=== PATIENT | female | born 1970 | race Caucasian/White ===

== ENCOUNTER → 2017-02-17 | Outpatient (CLI) | payer BC ==
[~2017-02-17] MED LIST: FORTAMET; LANTUS100 U/ML; NOVOLOG FLEX100 U/ML IV; PRENATAL1 TA3 PO
== END ==
LOC: MC.RAD 07:00
DX: Z12.31 Encounter for screening mammogram for malignant neoplasm of breast (principal)

== ENCOUNTER → 2017-08-10 | Outpatient (CLI) | payer BC ==
[~2017-08-10] VITALS: Ht 167.6 cm; Wt 138.3 kg
[~2017-08-10] MED LIST changes: +GLUCOPHAGE1000 MG PO; -LANTUS100 U/ML; +LANTUS100 U/ML SQ; -NOVOLOG FLEX100 U/ML IV; +NOVOLOG FLEX100 U/ML SQ; +PRINZIDE 25 MG-1 TAB PO; +VICTOZA6 MG/ML SQ; +VIENVA-28 TABL1 EACH PO; +WELLBUTRIN XL300 M1 PO; +ZOLOFT 100MG100 MG PO
[2017-08-10 14:57] VITALS: BP 140/84; PULSE 100
== END ==
LOC: LIGHT 14:24
DX: E88.81 Metabolic syndrome and other insulin resistance (principal); E11.9 Type 2 diabetes mellitus without complications; E66.01 Morbid (severe) obesity due to excess calories; Z68.42 Body mass index [BMI] 45.0-49.9, adult; Z71.3 Dietary counseling and surveillance; E78.00 Pure hypercholesterolemia, unspecified
CPT/HCPCS: G0463

== ENCOUNTER → 2017-08-29 | Outpatient (CLI) | payer BC | LOC: LIGHT 15:50 | DX: Z01.89 Encounter for other specified special examinations (principal) ==

== ENCOUNTER → 2017-09-07 | Outpatient (CLI) | payer BC ==
[~2017-09-07] VITALS: Ht 167.6 cm; Wt 137.4 kg
[2017-09-07 16:07] VITALS: BP 130/80; PULSE 80
== END ==
LOC: LIGHT 13:44
DX: E88.81 Metabolic syndrome and other insulin resistance (principal); E11.9 Type 2 diabetes mellitus without complications; E66.01 Morbid (severe) obesity due to excess calories; Z68.42 Body mass index [BMI] 45.0-49.9, adult; Z71.3 Dietary counseling and surveillance; E78.00 Pure hypercholesterolemia, unspecified
CPT/HCPCS: G0463

== ENCOUNTER → 2017-09-20 | Outpatient (CLI) | payer BC | LOC: LIGHT 15:53 | DX: Z01.818 Encounter for other preprocedural examination (principal) ==

== ENCOUNTER → 2017-10-12 | Outpatient (CLI) | payer BC ==
[~2017-10-12] VITALS: Ht 167.6 cm; Wt 139.5 kg
[2017-10-12 14:53] VITALS: BP 160/72; PULSE 88
== END ==
LOC: LIGHT 13:45
DX: E88.81 Metabolic syndrome and other insulin resistance (principal); E11.9 Type 2 diabetes mellitus without complications; E66.01 Morbid (severe) obesity due to excess calories; Z68.42 Body mass index [BMI] 45.0-49.9, adult; Z71.3 Dietary counseling and surveillance; E78.00 Pure hypercholesterolemia, unspecified
CPT/HCPCS: G0463

== ENCOUNTER → 2017-10-19 | Outpatient (CLI) | payer BC | LOC: BHSO 08:43 | DX: Z01.818 Encounter for other preprocedural examination (principal) ==

== ENCOUNTER → 2017-11-23 | Outpatient (CLI) | payer BC ==
[~2017-11-23] VITALS: Ht 167.6 cm; Wt 137.9 kg
[2017-11-23 17:03] VITALS: BP 140/82; PULSE 101
== END ==
LOC: LIGHT 11:29
DX: E88.81 Metabolic syndrome and other insulin resistance (principal); E11.9 Type 2 diabetes mellitus without complications; E66.01 Morbid (severe) obesity due to excess calories; Z68.42 Body mass index [BMI] 45.0-49.9, adult; Z71.3 Dietary counseling and surveillance; E78.00 Pure hypercholesterolemia, unspecified
CPT/HCPCS: G0463

== ENCOUNTER → 2018-02-01 | Outpatient (CLI) | payer BC ==
[~2018-02-01] VITALS: Ht 167.6 cm; Wt 139.3 kg
[2018-02-01 14:26] VITALS: BP 140/70; PULSE 60
== END ==
LOC: LIGHT 14:22
DX: E88.81 Metabolic syndrome and other insulin resistance (principal); E11.9 Type 2 diabetes mellitus without complications; E78.00 Pure hypercholesterolemia, unspecified; E66.01 Morbid (severe) obesity due to excess calories; Z68.42 Body mass index [BMI] 45.0-49.9, adult; Z71.3 Dietary counseling and surveillance
CPT/HCPCS: G0463

== ENCOUNTER → 2018-03-06 | Outpatient (CLI) | payer BC | LOC: LIGHT | DX: E88.81 Metabolic syndrome and other insulin resistance (principal); E11.65 Type 2 diabetes mellitus with hyperglycemia; E78.00 Pure hypercholesterolemia, unspecified; E66.01 Morbid (severe) obesity due to excess calories; Z68.42 Body mass index [BMI] 45.0-49.9, adult; Z71.3 Dietary counseling and surveillance ==

== ENCOUNTER → 2018-03-13 | Outpatient (CLI) | payer BC | LOC: MC.RAD 06:54 | DX: Z12.31 Encounter for screening mammogram for malignant neoplasm of breast (principal) ==

== ENCOUNTER 2018-03-21 05:52 | Day surgery (SDC) | payer BC ==
[2018-03-21] VITALS (11 sets, daily range): BP systolic 89–172; BP diastolic 54–91; PULSE 65–84; TEMP 97.9–98.7
[~2018-03-21] VITALS: Ht 162.6 cm; Wt 136.7 kg
[~2018-03-21 05:52] MED LIST changes: +FLINTSTONES COM1 CT1 PO; -PRENATAL1 TA3 PO
[2018-03-21] MEDS ORDERED: CRESTOR 10MG10 MG PO (06:38)
[2018-03-22 05:13] VITALS: BP 149/69; PULSE 65; TEMP 98.1
[2018-03-22 07:01] VITALS: BP 153/79; PULSE 65; TEMP 98.3
[2018-03-22 12:51] VITALS: BP 180/65; PULSE 76; TEMP 98.8
[2018-03-22 13:09] VITALS: BP 166/72
[2018-03-22 16:09] VITALS: BP 151/67; PULSE 69; TEMP 98.5
[2018-03-26] MEDS ORDERED: VITAMIN D31000 I1 PO (13:28)
== END 2018-03-22 17:10 | disposition home or self-care (01) ==
LOC: SDCO 05:52 → SURG 11:46 → SDCO 03-22 17:10
DX: E88.81 Metabolic syndrome and other insulin resistance (principal); E66.01 Morbid (severe) obesity due to excess calories; Z68.42 Body mass index [BMI] 45.0-49.9, adult; K29.50 Unspecified chronic gastritis without bleeding; E11.9 Type 2 diabetes mellitus without complications; Z79.4 Long term (current) use of insulin; E78.00 Pure hypercholesterolemia, unspecified; Z71.3 Dietary counseling and surveillance; Z79.899 Other long term (current) drug therapy; I10 Essential (primary) hypertension; F32.9 Major depressive disorder, single episode, unspecified
CPT/HCPCS: OP; J0360; J0690; J1100; J1170; J1815; J1885; J2250; J2405; J2550; J2704; J2765; J3010; J7030

== ENCOUNTER → 2018-03-26 | Outpatient (CLI) | payer BC ==
[~2018-03-26] VITALS: Ht 162.6 cm; Wt 129.0 kg
[~2018-03-26] MED LIST changes: +CRESTOR 10MG10 MG PO; +VITAMIN D31000 I1 PO
[2018-03-26 13:28] VITALS: BP 112/64; PULSE 72
== END ==
LOC: LIGHT
DX: E11.65 Type 2 diabetes mellitus with hyperglycemia (principal); E78.00 Pure hypercholesterolemia, unspecified; Z98.84 Bariatric surgery status; E66.01 Morbid (severe) obesity due to excess calories; Z68.42 Body mass index [BMI] 45.0-49.9, adult; Z71.3 Dietary counseling and surveillance

== ENCOUNTER → 2018-04-23 | Outpatient (CLI) | payer BC ==
[~2018-04-23] VITALS: Ht 162.6 cm; Wt 121.3 kg
[2018-04-23 16:14] VITALS: BP 124/88; PULSE 68
== END ==
LOC: LIGHT 16:03
DX: E11.65 Type 2 diabetes mellitus with hyperglycemia (principal); E78.00 Pure hypercholesterolemia, unspecified; Z98.84 Bariatric surgery status; E66.01 Morbid (severe) obesity due to excess calories; Z68.42 Body mass index [BMI] 45.0-49.9, adult; Z71.3 Dietary counseling and surveillance

== ENCOUNTER → 2018-09-24 | Outpatient (CLI) | payer BC ==
[~2018-09-24] VITALS: Ht 167.6 cm; Wt 102.3 kg
[~2018-09-24] MED LIST changes: +LANTUS SOLOS100 U/ML SQ; +LUTERA 0.02 MG-1 TAB PO; +OZEMPIC0.25 MG/0. SQ; +ZETIA 10MG TAB10 MG PO; +ZOCOR 20MG20 MG
[2018-09-24 16:26] VITALS: BP 118/80; PULSE 84
== END ==
LOC: LIGHT 15:11
DX: E11.65 Type 2 diabetes mellitus with hyperglycemia (principal); E78.00 Pure hypercholesterolemia, unspecified; Z98.84 Bariatric surgery status; E66.01 Morbid (severe) obesity due to excess calories; Z68.36 Body mass index [BMI] 36.0-36.9, adult; Z71.3 Dietary counseling and surveillance
CPT/HCPCS: G0463

== ENCOUNTER → 2019-03-25 | Outpatient (CLI) | payer BC ==
[~2019-03-25] VITALS: Ht 167.6 cm; Wt 93.0 kg
[2019-03-25 16:15] VITALS: BP 110/78; PULSE 80
== END ==
LOC: LIGHT 14:54
DX: E11.65 Type 2 diabetes mellitus with hyperglycemia (principal); E78.00 Pure hypercholesterolemia, unspecified; Z98.84 Bariatric surgery status; E66.01 Morbid (severe) obesity due to excess calories; Z68.33 Body mass index [BMI] 33.0-33.9, adult; Z71.3 Dietary counseling and surveillance
CPT/HCPCS: G0463

== ENCOUNTER → 2019-04-04 | Outpatient (CLI) | payer BC | LOC: MC.RAD 07:07 | DX: Z12.31 Encounter for screening mammogram for malignant neoplasm of breast (principal) ==

== ENCOUNTER → 2020-03-23 | Outpatient (CLI) | payer BC ==
[~2020-03-23] VITALS: Ht 167.6 cm; Wt 83.2 kg
[2020-03-23 16:54] VITALS: BP 126/80; PULSE 60
== END ==
LOC: LIGHT 16:21
DX: E66.8 Other obesity (principal); Z68.29 Body mass index [BMI] 29.0-29.9, adult; Z98.84 Bariatric surgery status; E11.9 Type 2 diabetes mellitus without complications
CPT/HCPCS: G0463

== ENCOUNTER → 2020-04-06 | Outpatient (CLI) | payer BC | LOC: MC.RAD 12:14 | DX: Z12.31 Encounter for screening mammogram for malignant neoplasm of breast (principal) ==

== ENCOUNTER → 2021-05-10 | Outpatient (CLI) | payer BC | LOC: MC.RAD 07:27 | DX: Z12.31 Encounter for screening mammogram for malignant neoplasm of breast (principal) ==

== ENCOUNTER → 2022-06-22 | Outpatient (CLI) | payer BC ==
[~2022-06-22] MED LIST changes: +OZEMPIC2 MG/0.75 SQ; +XIGDUO5/1000 PO
== END ==
LOC: MC.RAD 06:50
DX: Z12.31 Encounter for screening mammogram for malignant neoplasm of breast (principal)

== ENCOUNTER → 2023-07-06 | Outpatient (CLI) | payer BC | LOC: MC.RAD 06:57 | DX: Z12.31 Encounter for screening mammogram for malignant neoplasm of breast (principal) ==